=== PATIENT | male | born 1960 | race Caucasian/White ===

== ENCOUNTER 2019-10-22 09:38 | Emergency (ER) | payer OTHER ==
[~2019-10-22] VITALS: Ht 180.3 cm; Wt 81.6 kg
[2019-10-22] MEDS ORDERED: AMBIEN10 MG PO (09:47)
[2019-10-22] MEDS ORDERED: VISTARIL50 MG PO (09:47)
[2019-10-22] MEDS ORDERED: ZOLOFT50 MG PO (09:48)
[2019-10-22] MEDS ORDERED: XANAX2 MG PO (09:48)
[2019-10-22] MEDS ORDERED: MEDROLPACK PO (12:14)
== END 2019-10-22 12:20 | disposition home or self-care (01) ==
LOC: ER 09:38
DX: G51.0 Bell's palsy (principal); Z03.818 Encounter for observation for suspected exposure to other biological agents ruled out

== ENCOUNTER 2024-03-02 12:37 | Inpatient (IN) | payer OTHER ==
[~2024-03-02] VITALS: Ht 180.3 cm; Wt 86.2 kg
[~2024-03-02 12:37] MED LIST: AMBIEN10 MG PO; MEDROLPACK PO; VISTARIL50 MG PO; XANAX2 MG PO; ZOLOFT50 MG PO
[2024-03-02 14:02] LABS: HEMATOCRIT 44.3 % (39.0-48.0); HEMOGLOBIN 14.7 g/dL (13-16.00); MEAN CELL VOLUME 92.3 fL (80.0-100.00); MEAN CORPUSCULAR HEMOGLOBIN 30.6 pg (27.00-32.0); MEAN CORPUSCULAR HGB CONC 33.2 g/dl (32.0-36.0); PLATELET COUNT 303 K/uL (150-450); RED CELL DISTRIBUTION WIDTH 13.5 % (11.5-14.5)
[2024-03-02 14:21] LABS: CALCIUM 9.5 mg/dL (8.5-10.1); CREATININE SERUM 0.91 mg/dL (0.70-1.30); GFR 84.42; POTASSIUM 4.11 mEq/L (3.5-5.1)
[2024-03-02 14:24] LABS: D DIMER 1.4 MG/L; INR 1.01; PARTIAL THROMBOPLASTIN TIME 28.1 SECONDS (22.0-34.0)
[2024-03-02] MEDS ORDERED: ENOXAPARIN SODIUM 80 MG/0.8 ML SYRINGE SUBCUTANEO STA (15:20)
[2024-03-02] MEDS ORDERED: 0.9 % SODIUM CHLORIDE 1,000 ML IV STA (15:30)
[2024-03-02] MEDS ORDERED: CEFTRIAXONE SODIUM 2,000 MG VIAL IV STA (15:30)
[2024-03-02] MEDS ORDERED: ALPRAzolam 1 MG TABLET PO SCH (18:44)
[2024-03-02] MEDS ORDERED: ACETAMINOPHEN 500 MG GEL..CAP PO PRN (18:45)
[2024-03-02] MEDS ORDERED: ONDANSETRON HCL 4 MG in DEXTROSE 5 % IN WATER 50 ML IV PRN (18:45)
[2024-03-02] MEDS ORDERED: 0.9 % SODIUM CHLORIDE 1,000 ML IV SCH (18:45)
[2024-03-02] MEDS ORDERED: CLINDAMYCIN PHOSPHATE 600 MG in 0.9 % SODIUM CHLORIDE 50 ML IV SCH (18:50)
[2024-03-02] MEDS ORDERED: QUETIAPINE FUMARATE 100 MG TABLET PO SCH (21:00)
[2024-03-02] MEDS ORDERED: FAMOTIDINE/PF 20 MG in 0.9 % SODIUM CHLORIDE 8 ML IV PUSH SCH (21:00)
[2024-03-02] MEDS ORDERED: ESTAZOLAM 2 MG PO SCH (21:00)
[2024-03-02] MEDS ORDERED: ENOXAPARIN SODIUM 80 MG/0.8 ML SYRINGE SUBCUTANEO SCH (21:00)
[2024-03-02] MEDS ORDERED: hydrALAZINE HCL 20 MG VIAL IV PRN (23:15)
[2024-03-03] VITALS (8 sets, daily range): BP systolic 113–143; BP diastolic 68–79; O2SAT 90–96
[2024-03-03 08:29] LABS: BILIRUBIN TOTAL 0.33 mg/dL (0.3-1.2); BILIRUBIN,CONJUGATED 0.11 mg/dL (0.0-0.2); BILIRUBIN,UNCONJUGATED 0.22 mg/dL (0.0-0.6); CALCIUM 8.5 mg/dL (8.5-10.1); CHOL HDL RATIO 6.2 (0-5.0); CREATININE SERUM 0.76 mg/dL (0.70-1.30); GFR 103.92; GLOBULINA 3.6 G/DL (2.4-3.5); POTASSIUM 4.22 mEq/L (3.5-5.1); TOTAL PROTEIN 6.6 gm/dL (6.4-8.2)
[2024-03-03 08:40] LABS: HEMATOCRIT 42.7 % (39.0-48.0); HEMOGLOBIN 14.5 g/dL (13-16.00); MEAN CELL VOLUME 91.4 fL (80.0-100.00); MEAN CORPUSCULAR HEMOGLOBIN 31.1 pg (27.00-32.0); PLATELET COUNT 278 K/uL (150-450); RED BLOOD COUNT 4.67 M/uL (4.00-6.00); RED CELL DISTRIBUTION WIDTH 13.4 % (11.5-14.5)
[2024-03-03 08:48] LABS: C-REACTIVE PROTEIN 6.4 MG/DL (0.00-0.29)
[2024-03-03] MEDS ORDERED: CEFTRIAXONE SODIUM 2,000 MG in DEXTROSE 5 % IN WATER 100 ML IV SCH (09:00)
[2024-03-03] MEDS ORDERED: SERTRALINE HCL 100 MG TABLET PO SCH (09:00)
[2024-03-03 09:24] LABS: INR 0.98; PARTIAL THROMBOPLASTIN TIME 30.2 SECONDS (22.0-34.0); PROTHROMBIN TIME 10.7 SECONDS (9.0-11.5)
[2024-03-03] MEDS ORDERED: NICOTINE 21MG/24HR PATCH.TD24 TD STA (10:17)
[2024-03-03 10:20] LABS: ERYTHROCYTE SEDIMENTATION RATE 72 mm/hr
[2024-03-03] MEDS ORDERED: PATIENTS OWN MEDICATION (MEDICAMENTO EN PISO) PO SCH (21:00)
[2024-03-03] MEDS ORDERED: ENOXAPARIN SODIUM 80 MG/0.8 ML SYRINGE SUBCUTANEO SCH (21:00)
[2024-03-04] VITALS (9 sets, daily range): BP systolic 113–142; BP diastolic 74–75; O2SAT 90–96
[2024-03-04] MEDS ORDERED: LACTOBACILLUS ACIDOPHILUS 1 CAP CAP PO SCH (09:00)
[2024-03-04] MEDS ORDERED: NICOTINE 21MG/24HR PATCH.TD24 TD SCH (09:00)
[2024-03-05] VITALS (8 sets, daily range): BP systolic 112–123; BP diastolic 68–75; O2SAT 88–98
[2024-03-05] MEDS ORDERED: APIXABAN 5 MG TABLET PO SCH (09:00)
[2024-03-05 15:28] LABS: HEMATOCRIT 45.6 % (39.0-48.0); MEAN CELL VOLUME 91.9 fL (80.0-100.00); MEAN CORPUSCULAR HEMOGLOBIN 30.3 pg (27.00-32.0); PLATELET COUNT 290 K/uL (150-450); RED BLOOD COUNT 4.97 M/uL (4.00-6.00); RED CELL DISTRIBUTION WIDTH 13.2 % (11.5-14.5)
[2024-03-05 15:57] LABS: BILIRUBIN TOTAL 0.24 mg/dL (0.3-1.2); CALCIUM 8.9 mg/dL (8.5-10.1); CREATININE SERUM 0.84 mg/dL (0.70-1.30); GFR 92.59; POTASSIUM 4.48 mEq/L (3.5-5.1)
[2024-03-06 01:00] VITALS: O2SAT 90
[2024-03-06 01:39] VITALS: BP 118/66; O2SAT 96
[2024-03-06 05:40] VITALS: O2SAT 100
[2024-03-06 08:12] VITALS: BP 122/85; O2SAT 97
== END 2024-03-06 08:57 | disposition home or self-care (01) | DRG 301 ==
LOC: ER 12:39 → SEC-K 20:01 → MEDI 22:01
PROVIDERS: General Practice; ADMIT Internal Medicine; ATTEND Internal Medicine
PROC: B54CZZZ Ultrasonography of Left Lower Extremity Veins (ICD-10-PCS; principal; 2024-03-02)
PROC: 4A12X4Z Monitoring of Cardiac Electrical Activity, External Approach (ICD-10-PCS; 2024-03-03)
DX: I82.452 Acute embolism and thrombosis of left peroneal vein (principal); I87.2 Venous insufficiency (chronic) (peripheral); I10 Essential (primary) hypertension

== ENCOUNTER 2024-04-03 07:55 | Outpatient (CLI) | payer OTHER ==
[~2024-04-03 07:55] MED LIST changes: +GABAPENTIN600 MG PO
[2024-04-03 08:50] LABS: PH,URINE 6.5 (5.0-8.0); URINE APPEARANCE Clear; URINE BILIRRUBIN Negative (NEGATIVE); URINE COLOR Dark Yellow; URINE GLUCOSE Negative (NEGATIVE); URINE KETONE Trace (NEGATIVE); URINE LEUKOCYTE Negative; URINE NITRATE Negative; URINE PROTEIN Negative (NEGATIVE)
[2024-04-03 08:55] LABS: URINE BACTERIA 8.5 uL (0.0-1933); URINE RBC 71.1 uL (0.0-20.8); URINE WBC 2.2 uL (0.0-23.2)
[2024-04-03 09:08] LABS: URINE BLOOD TRACES; URINE CAST 0.73 uL (0.0-1.40); URINE EPITHELIAL CELLS 1.2 uL (0.0-38.8)
[2024-04-03 11:58] LABS: HEMATOCRIT 45.7 % (39.0-48.0); MEAN CELL VOLUME 91.7 fL (80.0-100.00); MEAN CORPUSCULAR HGB CONC 33.3 g/dl (32.0-36.0); PLATELET COUNT 299 K/uL (150-450); RED BLOOD COUNT 4.99 M/uL (4.00-6.00); RED CELL DISTRIBUTION WIDTH 13.4 % (11.5-14.5)
[2024-04-03 12:02] LABS: HEMOGLOBIN 15.2 g/dL (13-16.00); MEAN CORPUSCULAR HEMOGLOBIN 30.4 pg (27.00-32.0)
[2024-04-03 12:27] LABS: ALBUMIN 3.5 gm/dL (3.4-5.0); BILIRUBIN TOTAL 0.68 mg/dL (0.3-1.2); CALCIUM 8.9 mg/dL (8.5-10.1); CHOL HDL RATIO 5.5 (0-5.0); CREATININE SERUM 0.92 mg/dL (0.70-1.30); GFR 83.36; POTASSIUM 4.26 mEq/L (3.5-5.1); PROSTATIC SPECIFIC ANTIGEN 0.809 NG/ML (0.010-4.00); TOTAL PROTEIN 7.5 gm/dL (6.4-8.2); TSH 3.53 uIU/mL (0.358-3.74)
[2024-04-03 14:01] LABS: ob POSITIVE (NEGATIVE)
[2024-04-05 16:08] LABS: ANTI CARDIO IGA < 9 APL U/mL (0-11); ANTI CARDIO IGG < 9 GPL U/mL (0-14); ANTI CARDIO IGM 39 MPL U/mL (0-12)
== END 2024-04-03 08:15 | disposition home or self-care (01) ==
LOC: LAB 07:55
PROVIDERS: ATTEND Internal Medicine
DX: N39.0 Urinary tract infection, site not specified (principal); I10 Essential (primary) hypertension; E06.9 Thyroiditis, unspecified; E78.5 Hyperlipidemia, unspecified; Z12.11 Encounter for screening for malignant neoplasm of colon; N40.1 Benign prostatic hyperplasia with lower urinary tract symptoms; D68.59 Other primary thrombophilia; I80.9 Phlebitis and thrombophlebitis of unspecified site

== ENCOUNTER 2024-04-06 08:42 | Outpatient (CLI) | payer OTHER | END 2024-04-06 09:00 | disposition home or self-care (01) | LOC: MRI 08:42 | PROVIDERS: ATTEND Internal Medicine | DX: M54.16 Radiculopathy, lumbar region (principal); M54.12 Radiculopathy, cervical region; J44.9 Chronic obstructive pulmonary disease, unspecified | CPT/HCPCS: 72141; 72148 ==

== ENCOUNTER 2025-01-23 07:43 | Outpatient (CLI) | payer OTHER ==
[~2025-01-23 07:43] MED LIST changes: +DICLOFENAC EPO1 EACH TD; +NEURONTIN800 MG PO
== END 2025-01-23 07:44 | disposition home or self-care (01) ==
LOC: NUCLEAR 07:43
DX: I73.9 Peripheral vascular disease, unspecified (principal)